=== PATIENT | female | born 1955 | race Caucasian/White ===

== ENCOUNTER 2021-01-26 16:01 | Emergency (ER) | payer OTHER ==
[~2021-01-26] VITALS: Ht 172.7 cm; Wt 79.4 kg
[2021-01-26] MEDS ORDERED: ACETAMINOPHEN 325 MG TAB PO ONE (17:00)
[2021-01-26 17:33] LABS: CLARITY,URINE CLOUDY (CLEAR); COLOR,URINE YELLOW (YELLOW); LEUKOCYTE ESTERASE ,URINE 1+ (NEGATIVE); NITRITE,URINE NEGATIVE (NEGATIVE)
[2021-01-26 17:34] LABS: KETONES,URINE NEGATIVE (NEGATIVE); PROTEIN,URINE DIPSTICK NEGATIVE (NEGATIVE); URINE UROBILINOGEN 0.2 mg/dL (0.2 - 1)
[2021-01-26 17:53] LABS: BACTERIA,URINE MANY /HPF; EPITHELIAL CELLS,URINE MANY /LPF
[2021-01-26 20:31] VITALS: BP 130/78
== END 2021-01-26 20:32 | disposition home or self-care (01) ==
LOC: ER 17:14
DX: S00.83XA Contusion of other part of head, initial encounter (principal); S20.219A Contusion of unspecified front wall of thorax, initial encounter; W01.0XXA Fall on same level from slipping, tripping and stumbling without subsequent striking against object, initial encounter; Y93.01 Activity, walking, marching and hiking
CPT/HCPCS: 70450; 71101; 72125; 81001; 99283